=== PATIENT | male | born 1970 | race Caucasian/White ===

== ENCOUNTER 2016-12-20 18:05 | Emergency (ER) | payer MEDICAID, OTHER ==
[~2016-12-20] VITALS: Ht 182.9 cm; Wt 94.8 kg
[2016-12-20 18:19] VITALS: BP 132/74; PULSE 80; RESP 18; TEMP 97.3; O2SAT 97
[2016-12-20] MEDS ORDERED: ROBA500T PO (18:29)
[2016-12-20] MEDS ORDERED: PRIL20CA9 PO (18:29)
[2016-12-20] MEDS ORDERED: NABU1TAB37 PO (18:29)
[2016-12-20] MEDS ORDERED: CLON1 PO (18:29)
[2016-12-20] MEDS ORDERED: SODIUM CHLOR 0.9% 1000 ML INJ 1,000 ML IV SCH (18:38)
[2016-12-20] MEDS ORDERED: ONDANSETRON HCL 4 MG/2 ML VIAL IVP ONE (18:45)
[2016-12-20] MEDS ORDERED: DICYCLOMINE HCL 20 MG/2 ML VIAL IM ONE (18:45)
[2016-12-20] MEDS ORDERED: SODIUM CHLORIDE 0.9% FLUSH 5 ML FLUSH IVF PRN (18:45)
--- NOTE | 2016-12-20 18:45 | PD ---
HPI Chief Complaint: Abdominal Pain Time Seen by Provider: 18:24 Travel History International Travel<30 days: No Contact w/Intl Traveler<30days: No Traveled to known affect area: No History of Present Illness HPI Patient is a 46-year-old male presents emergency department for evaluation of right lower quadrant abdominal pain which started approximately 3 days ago. He states that roughly 7 days ago he started having nausea and vomiting nonbilious and nonbloody followed by a blowout bowel movement has been having runny stools since then. Denies any blood in the stool or melanotic stools. Patient denies any fevers. Patient states it feels like when he had appendicitis last time but they have taken out his appendix. Denies fevers. States it's cramping in nature and it feels better when he sits up. No other sick contacts. 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) Neurologic: No Psychiatric: Yes (PTSD) Respiratory: No Immunizations Current: Yes Past Surgical History Appendectomy: Yes Other Surgery: Yes Social History Alcohol Use: No (DENIES AT PRESENT) Tobacco Use: Yes (1PPD) Substance Use: Yes (admits to using ETOH/pot, states nothing recent) Allergies-Medications (Allergen,Severity, Reaction): Coded Allergies: Aleve (Verified Allergy, Severe, 12/20/16) Ampicillin (Verified Allergy, Mild, NAUSEA, 12/20/16) Naproxen (Verified Allergy, Mild, NAUSEA, 12/20/16) Penicillin (Verified Allergy, Mild, 12/20/16) PT DENIES Keflex (Verified Allergy, Unknown, 12/20/16) Reported Meds & Prescriptions Reported Meds & Active Scripts Active Zofran Odt (Ondansetron Odt) 4 Mg Tab 4 Mg SL Q6HR PRN Bentyl (Dicyclomine HCl) 20 Mg Tab 20 Mg PO TID PRN Flagyl (Metronidazole) 500 Mg Tab 500 Mg PO BID 7 Days Ciprofloxacin (Ciprofloxacin HCl) 500 Mg Tab 500 Mg PO BID 7 Days Reported Klonopin (Clonazepam) 1 Mg Tab 1 Mg PO TID Prilosec (Omeprazole) 20 Mg Cap Unknown Dose PO DAILY Robaxin (Methocarbamol) 500 Mg Tab Unknown Dose PO QID Nabumetone 500 Mg Tab Unknown Dose PO DAILY Review of Systems Except as stated in HPI: all other systems reviewed are Neg Physical Exam Narrative GENERAL: Well-developed well-nourished no apparent distress SKIN: Warm and dry. HEAD: Atraumatic. Normocephalic. EYES: Pupils equal and round. No scleral icterus. No injection or drainage. ENT: No nasal bleeding or discharge. Mucous membranes pink and moist. NECK: Trachea midline. No JVD. CARDIOVASCULAR: Regular rate and rhythm. No murmur appreciated. RESPIRATORY: No accessory muscle use. Clear to auscultation. Breath sounds equal bilaterally. GASTROINTESTINAL: Abdomen soft, non-tender, nondistended. Hepatic and splenic margins not palpable. Psoas and obturator signs negative. No rebound no percussive tenderness. Minimal tenderness in the right lower quadrant just lateral to McBurney's point. MUSCULOSKELETAL: No obvious deformities. No clubbing. No cyanosis. No edema. NEUROLOGICAL: Awake and alert. No obvious cranial nerve deficits. Motor grossly within normal limits. Normal speech. PSYCHIATRIC: Appropriate mood and affect; insight and judgment normal. Data Data Last Documented VS Orders Complete Blood Count With Diff (12/20/16 18:38) Comprehensive Metabolic Panel (12/20/16 18:38) Lipase (12/20/16 18:38) Iv Access Insert/Monitor (12/20/16 18:38) Ecg Monitoring (12/20/16 18:38) Oximetry (12/20/16 18:38) Ondansetron Inj (Zofran Inj) (12/20/16 18:45) Sodium Chlor 0.9% 1000 Ml Inj (Ns 1000 M (12/20/16 18:38) Sodium Chloride 0.9% Flush (Ns Flush) (12/20/16 18:45) Dicyclomine Inj (Bentyl Inj) (12/20/16 18:45) Morphine Inj (Morphine Inj) (12/20/16 19:30) Ct Abd/Pel W Iv Contrast(Rout) (12/20/16 ) Iohexol 350 Inj (Omnipaque 350 Inj) (12/20/16 20:26) Dicyclomine (Bentyl) (12/20/16 20:45) Ondansetron Odt (Zofran Odt) (12/20/16 20:45) Labs MDM Medical Decision Making Medical Screen Exam Complete: Yes Emergency Medical Condition: Yes Differential Diagnosis Appendicitis, lecture led him normality, gastritis, gastroenteritis, cholecystitis is less likely. Narrative Course Patient labs do show a minimally elevated white blood cell count with minimal neutrophil predominance, electrolytes AST ALT lipase within normal limits. Last 24 hours Impressions Abdomen/Pelvis CT 12/20/16 0000 Signed Impressions: Service Date/Time: Tuesday, December 20, 2016 20:09 - CONCLUSION: 1. A few mildly dilated loops of small bowel are demonstrated. This is nonspecific but may be seen with an ileus. 2. No definite diverticulitis is demonstrated. Curt Celeste MD Discuss results with the patient he does have bowel sounds and I don't think that ileus is likely in this patient. Also he has been able to tolerate his by mouth medicines in the emergency department so I doubt he is having significant obstruction. Discussed he needs to consider admission to the hospital for observation given the CT findings. He would like to go home. He feels much better and he does seem to be fairly reliable. Discussed with him return to ED criteria follow-up with his primary care physician Diagnosis Primary Impression: Gastroenteritis Med/Other Pt SpecificInfo: Prescription(s) given Scripts Ondansetron Odt (Zofran Odt)4 Mg Tab4 Mg SL Q6HR PRN (Nausea/Vomiting) #30 TAB Ref 0 Prov:Yovany Sprague MD 12/20/16 Dicyclomine (Bentyl)20 Mg Tab20 Mg PO TID PRN (Bowel Management) #20 TAB Ref 0 Prov:Yovany Sprague MD 12/20/16 Metronidazole (Flagyl)500 Mg [id number] Mg PO BID 7 Days Ref 0 Prov:Yovany Sprague MD 12/20/16 Ciprofloxacin 500 Mg [id number] Mg PO BID 7 Days Ref 0 Prov:Yovany Sprague MD 12/20/16 Disposition: 01 DISCHARGE HOME Condition: Stable Yovany Srpague MD Dec 20, 2016 18:45 Differential Comment Sodium Level 143 MEQ/L Potassium Level 4.6 MEQ/L Chloride Level 109 MEQ/L Carbon Dioxide Level 24.5 MEQ/L Anion Gap 10 MEQ/L Blood Urea Nitrogen 16 MG/DL Creatinine 0.95 MG/DL Estimat Glomerular Filtration 85 ML/MIN Rate Random Glucose 102 MG/DL Calcium Level 8.6 MG/DL Total Bilirubin 0.5 MG/DL Aspartate Amino Transf 23 U/L (AST/SGOT) Alanine Aminotransferase 13 U/L (ALT/SGPT) Alkaline Phosphatase 52 U/L Total Protein 6.9 GM/DL Albumin 3.5 GM/DL Lipase 119 U/L MDM Medical Decision Making Medical Screen Exam Complete: Yes Emergency Medical Condition: Yes Diagnosis Primary Impression: Gastroenteritis Med/Other Pt SpecificInfo: Prescription(s) given Scripts Ondansetron Odt (Zofran Odt)4 Mg Tab4 Mg SL Q6HR PRN (Nausea/Vomiting) #30 TAB Ref 0 Prov:Yovany Sprague MD 12/20/16 Dicyclomine (Bentyl)20 Mg Tab20 Mg PO TID PRN (Bowel Management) #20 TAB Ref 0 Prov:Yovany Sprague MD 12/20/16 Metronidazole (Flagyl)500 Mg [id number] Mg PO BID 7 Days Ref 0 Prov:Yovany Sprague MD 12/20/16 Ciprofloxacin 500 Mg [id number] Mg PO BID 7 Days Ref 0 Prov:Yovany Sprague MD 12/20/16 Disposition: 01 DISCHARGE HOME Condition: Stable Yovany Sprague MD Dec 20, 2016 18:45
[2016-12-20 18:49] VITALS: O2SAT 98
[2016-12-20 18:57] LABS: AUTOMATED NEUTROPHIL # 8.9 TH/MM3 (1.8-7.7); BASOPHIL # 0.3 TH/MM3 (0-0.2); BASOPHIL % 2.7 % (0.0-2.0); EOSINOPHIL # 0.2 TH/MM3 (0-0.4); EOSINOPHIL % 1.9 % (0.0-4.0); HEMATOCRIT 45.3 % (39.0-51.0); HEMO FLAGS DIFF FINAL; LYMPH % 19.7 % (9.0-44.0); LYMPHOCYTE # 2.4 TH/MM3 (1.0-4.8); MEAN CELL VOLUME 90.9 FL (80.0-100.0); MONO % 5.1 % (0.0-8.0); NEUT % 70.6 % (16.0-70.0); PLATELET COUNT 227 TH/MM3 (150-450); RED BLOOD COUNT 4.99 MIL/MM3 (4.50-5.90); RED CELL DISTRIBUTION WIDTH 12.4 % (11.6-17.2); WHITE BLOOD COUNT 12.4 TH/MM3 (4.0-11.0)
[2016-12-20 19:15] VITALS: BP 119/74; PULSE 70; RESP 18; TEMP 97.7; O2SAT 99
[2016-12-20 19:17] LABS: CHLORIDE 109 MEQ/L (98-107); POTASSIUM 4.6 MEQ/L (3.5-5.1); SODIUM (NA) 143 MEQ/L (136-145)
[2016-12-20 19:21] LABS: ANION GAP 10 MEQ/L (5-15); BICARBONATE 24.5 MEQ/L (21.0-32.0); BLOOD UREA NITROGEN 16 MG/DL (7-18)
[2016-12-20 19:24] LABS: ALT (GPT) 13 U/L (12-78); AST (GOT) 23 U/L (15-37); GLOMERULAR FILTRATION RATE 85 ML/MIN (>89)
[2016-12-20 19:26] LABS: TOTAL BILIRUBIN ADULT 0.5 MG/DL (0.2-1.0)
[2016-12-20 19:27] LABS: ALKALINE PHOSPHATASE 52 U/L (45-117)
[2016-12-20] MEDS ORDERED: MORPHINE SULFATE 4 MG/ML INJ IV PUSH ONE (19:30)
[2016-12-20 20:25] VITALS: BP 116/63; PULSE 70; RESP 18; O2SAT 99
[2016-12-20] MEDS ORDERED: IOHEXOL 350 MG/ML 10 ML VIAL (for RAD DIAG) IV ONE (20:26)
[2016-12-20] MEDS ORDERED: BENT20TA PO (20:30)
[2016-12-20] MEDS ORDERED: CIPR500T2 PO (20:30)
[2016-12-20] MEDS ORDERED: METR-1 PO (20:30)
[2016-12-20] MEDS ORDERED: ZOFR4TAB3 SL (20:31)
--- NOTE | 2016-12-20 20:34 | RADHPO ---
EXAM DATE/TIME: 12/20/2016 20:09 [facility] COMPARISON: No previous studies available for comparison. INDICATIONS : Lower pelvic pain,diverticulitis. IV CONTRAST: 91 cc Omnipaque 350 (iohexol) IV ORAL CONTRAST: No oral contrast ingested. RADIATION DOSE: 12.70 CTDIvol (mGy) MEDICAL HISTORY : None SURGICAL HISTORY : Appendectomy. ENCOUNTER: Initial ACUITY: 1 day PAIN SCALE: 5/10 LOCATION: abdomen TECHNIQUE: Volumetric scanning of the abdomen and pelvis was performed. Using automated exposure control and ad justment of the mA and/or kV according to patient size, radiation dose was kept as low as reasonably achievable to obtain optimal diagnostic quality images. FINDINGS: LOWER LUNGS: The visualized lower lungs are clear. LIVER: Homogeneous density without lesion. There is no dilation of the biliary tree. No calcified gallston es. SPLEEN: Normal size without lesion. PANCREAS: Within normal limits. KIDNEYS: Normal in size and shape. There is no mass, stone or hydronephrosis. ADRENAL GLANDS: Within normal limits. VASCULAR: There is no aortic aneurysm. BOWEL/MESENTERY: The stomach, small bowel, and colon demonstrate no acute abnormality. There is no free intraperitone al air or fluid. There are few mildly dilated loops of small bowel with some fluid and air. This is n onspecific. No definite inflammatory changes are seen adjacent to the descending or sigmoid colon. ABDOMINAL WALL: Within normal limits. RETROPERITONEUM: There is no lymphadenopathy. BLADDER: No wall thickening or mass. REPRODUCTIVE: Within normal limits. INGUINAL: There is no lymphadenopathy or hernia. MUSCULOSKELETAL: Within normal limits for patient age. CONCLUSION: 1. A few mildly dilated loops of small bowel are demonstrated. This is nonspecific but may be seen wi th an ileus. 2. No definite diverticulitis is demonstrated. Curt Celeste MD on December 20, 2016 at 20:30 Board Certified Radiologist. This report was verified electronically.
[2016-12-20] MEDS ORDERED: DICYCLOMINE HCL 10 MG CAP PO ONE (20:45)
[2016-12-20] MEDS ORDERED: ONDANSETRON ODT 4 MG TAB PO ONE (20:45)
== END 2016-12-20 21:08 | disposition home or self-care (01) ==
LOC: PHED 18:05
DX: K52.9 Noninfective gastroenteritis and colitis, unspecified (principal); F17.210 Nicotine dependence, cigarettes, uncomplicated; F90.9 Attention-deficit hyperactivity disorder, unspecified type; F43.10 Post-traumatic stress disorder, unspecified
CPT/HCPCS: 74177; 80053; 83690; 85025; 96361; 96374; 96375; 99284; J2270; J2405; J7030; Q9967

== ENCOUNTER 2017-01-12 13:37 | Emergency (ER) | payer OTHER ==
[~2017-01-12] VITALS: Ht 182.9 cm; Wt 99.9 kg
[~2017-01-12 13:37] MED LIST: BENT20TA PO; CIPR500T2 PO; CLON1 PO; METR-1 PO; NABU1TAB37 PO; PRIL20CA9 PO; ROBA500T PO; ZOFR4TAB3 SL
[2017-01-12 13:41] VITALS: BP 125/80; PULSE 90; RESP 16; TEMP 97.7; O2SAT 96
--- NOTE | 2017-01-12 13:57 | PD ---
HPI Chief Complaint: Oral / Dental Pain or Problem Time Seen by Provider: 13:56 Travel History International Travel<30 days: No Contact w/Intl Traveler<30days: No Traveled to known affect area: No History of Present Illness HPI 46-year-old male presents to the ED for evaluation of 5 day history of left upper dental pain. Gradual onset. Patient states it is his "wisdom tooth." The pain radiates to the left ear. He denies headaches, dizziness, fever, chills, difficulty swallowing. No treatment attempt at home. He does not have a primary care provider or dentist. 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) Neurologic: No Psychiatric: Yes (PTSD) Respiratory: No Immunizations Current: Yes Tetanus Vaccination: < 5 Years Influenza Vaccination: Yes Past Surgical History Appendectomy: Yes Other Surgery: Yes Social History Alcohol Use: No (denies) Tobacco Use: Yes (5 cigarettes/day) Substance Use: Yes (denies, hx of marijuana & ETOH) Allergies-Medications (Allergen,Severity, Reaction): Coded Allergies: Aleve (Verified Allergy, Severe, 01/12/17) Ampicillin (Verified Allergy, Mild, NAUSEA, 01/12/17) Naproxen (Verified Allergy, Mild, NAUSEA, 01/12/17) Penicillin (Verified Allergy, Mild, 01/12/17) PT DENIES Keflex (Verified Allergy, Unknown, 01/12/17) Reported Meds & Prescriptions Reported Meds & Active Scripts Active Clindamycin (Clindamycin HCl) 150 Mg Cap 450 Mg PO Q8HR 10 Days Magic Mouthwash Adult Liq (Multi-Ingredient Mouthwash/Gargle) 120 Ml Susp 10 Ml SWISH-SWAL ACHS Each 5mL contains: Nystatin 200,000units, Diphenhydramine 4.25mg, Viscous Lidocaine 10mg, Murray syrup 0.8 mL Review of Systems Except as stated in HPI: all other systems reviewed are Neg Physical Exam Narrative GENERAL: Well-nourished, well-developed white male in no acute distress SKIN: Warm and dry. HEAD: Normocephalic. Atraumatic. EYES: No scleral icterus. No injection or drainage. PERRLA. EOMI. ENT: Pearly dupont tympanic membranes bilaterally. Nasal mucosa is moist. Oropharynx without erythema, edema or exudate. DENTAL: The patient is completely edentulous. The dental mucosa in the area of tooth #1 is pale, tender, edematous.. NECK: Supple, trachea midline. No JVD or lymphadenopathy. CARDIOVASCULAR: Regular rate and rhythm without murmurs, gallops, or rubs. 2+ DP and radial pulses bilaterally. RESPIRATORY: Breath sounds clear and equal bilaterally. No accessory muscle use. GASTROINTESTINAL: Abdomen soft, non-tender, nondistended. + Bowel sounds MUSCULOSKELETAL: No cyanosis, or edema. Patient is ambulatory and moves extremities spontaneously. BACK: Nontender without obvious deformity. No CVA tenderness. Data Data Last Documented VS Vital Signs Date Time Temp Pulse Resp B/P Pulse Ox O2 Delivery O2 Flow Rate FiO2 01/12/17 13:41 97.7 90 16 125/80 96 Orders Tramadol (Ultram) (01/12/17 14:15) [facility] Medical Decision Making Medical Screen Exam Complete: Yes Emergency Medical Condition: Yes Differential Diagnosis Gingivitis versus dentalgia versus dental caries versus dental abscess versus other Narrative Course 46-year-old male presents to the ED for evaluation of 5 day history of left upper dental pain. Gradual onset. Patient states it is his "wisdom tooth." The pain radiates to the left ear. He denies headaches, dizziness, fever, chills, difficulty swallowing. Vitals reviewed. Physical exam reveals a white male in no acute. Complete edentulism. The gingiva in the area of tooth #1 is tender, pale and edematous. Patient states that he has been unable to wear his dentures. Exam otherwise unremarkable. Patient endorses several allergies, including NSAIDs ASA and PCN. Administered PO Ultram. Prescribed clindamycin 450 3 times a day 10 days, Magic mouthwash when necessary for dental pain. He is instructed to take all medication as prescribed, follow up with a dentist. He indicated understanding of instructions and is agreeable to care plan. He is stable and discharged home. Diagnosis Primary Impression: Gingivitis Referrals: Dentist Patient Instructions: General Instructions, Gingivitis (ED) Additional Instructions: Rest, hydrate. Take all antibiotics as prescribed, even if symptoms resolve. Tylenol 3 times a day as prescribed for pain and inflammation. Magic mouthwash as needed for pain. Follow-up with a dentist. Return to the ED for any urgent or emergent medical condition. Med/Other Pt SpecificInfo: Prescription(s) given Scripts Clindamycin 150 Mg [id number] Mg PO Q8HR 10 Days Ref 0 Prov:Miguel Kee MD 01/12/17 Ofzftkbm-Nhggelybchtcvty-Wvgiksplb Liq (Magic Mouthwash Adult Liq)120 Ml Susp10 Ml SWISH-SWAL ACHS #120 ML Ref 0 Each 5mL contains: Nystatin 200,000units, Diphenhydramine 4.25mg, Viscous Lidocaine 10mg, Murray syrup 0.8 mL Prov:Miguel Kee MD 01/12/17 Disposition: 01 DISCHARGE HOME Condition: Stable Maggy Lin Jan 12, 2017 13:57
[2017-01-12] MEDS ORDERED: CLIN1CAP5 PO (14:12)
[2017-01-12] MEDS ORDERED: MAGICADU2 SWISH-SWAL (14:12)
[2017-01-12] MEDS ORDERED: traMADol HCL 50 MG TAB PO ONE (14:15)
== END 2017-01-12 14:48 | disposition home or self-care (01) ==
LOC: PHEFT 13:37
DX: K05.10 Chronic gingivitis, plaque induced (principal); F17.210 Nicotine dependence, cigarettes, uncomplicated
CPT/HCPCS: 99282

== ENCOUNTER 2017-02-03 09:22 | Emergency (ER) | payer OTHER ==
[~2017-02-03] VITALS: Ht 182.9 cm; Wt 92.0 kg
[~2017-02-03 09:22] MED LIST changes: -BENT20TA PO; -CIPR500T2 PO; +CLIN1CAP5 PO; -CLON1 PO; +MAGICADU2 SWISH-SWAL; -METR-1 PO; -NABU1TAB37 PO; -PRIL20CA9 PO; -ROBA500T PO; -ZOFR4TAB3 SL
[2017-02-03 09:40] VITALS: BP 139/103; PULSE 105; RESP 18; TEMP 98.3; O2SAT 98
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
== END 2017-02-03 10:08 | disposition left against medical advice (07) ==
LOC: PHED 09:22
DX: F29 Unspecified psychosis not due to a substance or known physiological condition (principal); F22 Delusional disorders
CPT/HCPCS: 99284

== ENCOUNTER 2017-02-04 18:19 | Emergency (ER) | payer OTHER ==
[~2017-02-04] VITALS: Ht 182.9 cm; Wt 100.0 kg
[2017-02-04 18:25] VITALS: BP 145/97; PULSE 137; RESP 18; TEMP 98.4; O2SAT 98
[2017-02-04] MEDS ORDERED: HALOPERIDOL LACTATE 5 MG/ML AMP IM ONE (18:30)
[2017-02-04] MEDS ORDERED: LORazepam 2 MG/ML VIAL IV ONE (18:30)
--- NOTE | 2017-02-04 18:37 | PD ---
HPI Chief Complaint: Psychiatric Symptoms Time Seen by Provider: 18:23 Travel History International Travel<30 days: No Contact w/Intl Traveler<30days: No Traveled to known affect area: No History of Present Illness HPI The patient is a 46-year-old male who presents emergency department via EMS for psychiatric evaluation. The patient has a history of schizoaffective disorder and is having active hallucinations and delusions. The patient believes that there was a [place] enslavement machine developed during the [place] era that has affected him. The patient feels like he has a black hairy tongue or some type of other tong that is sending hairs throughout his body. The patient states he can feel the hairs coming out of his skin. The patient thinks he is dying from whatever weapon the [place] used on him and is requesting help. The patient states she's been noncompliant on his medications. The patient denies any suicidal ideation or homicidal ideation. The patient is experiencing active hallucinations and delusions. He denies any current illicit drug use or alcohol use. 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) Neurologic: No Psychiatric: Yes (PTSD, hallucinations) Respiratory: No Immunizations Current: Yes Past Surgical History Appendectomy: Yes Other Surgery: Yes Social History Alcohol Use: No (denies) Tobacco Use: Yes (1 ppd) Substance Use: No (denies, hx of marijuana & ETOH) Allergies-Medications (Allergen,Severity, Reaction): Coded Allergies: Aleve (Verified Allergy, Severe, 01/12/17) Ampicillin (Verified Allergy, Mild, NAUSEA, 01/12/17) Naproxen (Verified Allergy, Mild, NAUSEA, 01/12/17) Penicillin (Verified Allergy, Mild, 01/12/17) PT DENIES Keflex (Verified Allergy, Unknown, 01/12/17) Reported Meds & Prescriptions Reported Meds & Active Scripts Active No Active Prescriptions or Reported Medications Review of Systems Except as stated in HPI: all other systems reviewed are Neg HENT: No: Lightheadedness Cardiovascular: No: Chest Pain or Discomfort Respiratory: No: Shortness of Breath Gastrointestinal: No: Nausea, Vomiting, Abdominal Pain Musculoskeletal: No: Weakness Psychiatric: Positive: Disorder of Thought, Other (as noted in the history of present illness), No: Suicidal Ideations, Homicidal Ideation Physical Exam Narrative GENERAL: Awake, alert, paranoid 46-year-old male who appears his stated age and is in no acute respiratory distress. SKIN: Focused skin assessment warm/dry. HEAD: Atraumatic. Normocephalic. EYES: Pupils equal and round. 3 mm bilateral and reactive. Mild old appearing ecchymosis under the eyes bilaterally. ENT: No nasal bleeding or discharge. Mucous membranes pink and moist. No visible dentition. NECK: Trachea midline. No JVD. CARDIOVASCULAR: Regular, tachycardic with a heart rate of 130. RESPIRATORY: No accessory muscle use. Clear to auscultation. Breath sounds equal bilaterally. GASTROINTESTINAL: Abdomen soft, non-tender, nondistended. No rebound tenderness. MUSCULOSKELETAL: No obvious deformities. No clubbing. No cyanosis. No edema. NEUROLOGICAL: Awake and alert. No obvious cranial nerve deficits. Motor grossly within normal limits. Normal speech. Patient is oriented to person, place, and year. PSYCHIATRIC: Appears delusional and somewhat paranoid. Data Data Last Documented VS Vital Signs Date Time Temp Pulse Resp B/P Pulse Ox O2 Delivery O2 Flow Rate FiO2 02/05/17 10:07 97.8 76 16 120/77 99 02/04/17 20:27 Room Air Orders Complete Blood Count With Diff (02/04/17 18:29) Comprehensive Metabolic Panel (02/04/17 18:29) Thyroid Stimulating Hormone (02/04/17 18:29) Urinalysis - C+S If Indicated (02/04/17 18:29) Electrocardiogram (02/04/17 18:29) Ecg Monitoring (02/04/17 18:29) Psych Screen (02/04/17 18:29) Haloperidol Inj (Haldol Inj) (02/04/17 18:30) Lorazepam Inj (Ativan Inj) (02/04/17 18:30) Drug Screen, Random Urine (02/04/17 18:29) Alcohol (Ethanol) (02/04/17 18:29) Potassium Chloride Eff (K-Lyte Cl Eff) (02/04/17 19:30) Free Thyroxine (T4) (02/04/17 20:24) Total T3 (02/04/17 20:24) Labs Laboratory Tests Test 02/04/17 02/04/1702/05/17 18:30 20:33 06:18 White Blood Count 10.2 TH/MM3 Red Blood Count 4.57 MIL/MM3 Hemoglobin 13.9 GM/DL Hematocrit 41.1 % Mean Corpuscular Volume 89.7 FL Mean Corpuscular Hemoglobin 30.5 PG Mean Corpuscular Hemoglobin 34.0 % Concent Red Cell Distribution Width 13.4 % Platelet Count 230 TH/MM3 Mean Platelet Volume 9.0 FL Neutrophils (%) (Auto) 65.5 % Lymphocytes (%) (Auto) 24.0 % Monocytes (%) (Auto) 9.0 % Eosinophils (%) (Auto) 0.8 % Basophils (%) (Auto) 0.7 % Neutrophils # (Auto) 6.7 TH/MM3 Lymphocytes # (Auto) 2.5 TH/MM3 Monocytes # (Auto) 0.9 TH/MM3 Eosinophils # (Auto) 0.1 TH/MM3 Basophils # (Auto) 0.1 TH/MM3 CBC Comment DIFF FINAL Differential Comment Sodium Level 140 MEQ/L Potassium Level 2.9 MEQ/L Chloride Level 103 MEQ/L Carbon Dioxide Level 27.7 MEQ/L Anion Gap 9 MEQ/L Blood Urea Nitrogen 24 MG/DL Creatinine 1.20 MG/DL Estimat Glomerular Filtration 65 ML/MIN Rate Random Glucose 125 MG/DL Calcium Level 9.3 MG/DL Total Bilirubin 0.8 MG/DL Aspartate Amino Transf 56 U/L (AST/SGOT) Alanine Aminotransferase 25 U/L (ALT/SGPT) Alkaline Phosphatase 60 U/L Total Protein 8.1 GM/DL Albumin 4.6 GM/DL Thyroid Stimulating Hormone 0.327 uIU/ML 3rd Gen Ethyl Alcohol Level LESS THAN 3 MG/DL Free Thyroxine 1.12 NG/DL Total Triiodothyronine 123 NG/DL Urine Color YELLOW Urine Turbidity HAZY Urine pH 5.5 Urine Specific [place] 1.031 Urine Protein 30 mg/dL Urine Glucose (UA) NEG mg/dL Urine Ketones 10 mg/dL Urine Occult Blood NEG Urine Nitrite NEG Urine Bilirubin NEG Urine Urobilinogen LESS THAN 2.0 MG/DL Urine Leukocyte Esterase NEG Urine RBC 1 /hpf Urine WBC 3 /hpf Urine Hyaline Casts 13 /lpf Urine Mucus MOD /lpf Microscopic Urinalysis Comment CULT NOT INDICATED Urine Opiates Screen NEG Urine Barbiturates Screen NEG Urine Amphetamines Screen POS Urine Benzodiazepines Screen POS Urine Cocaine Screen NEG Urine Cannabinoids Screen POS MDM Medical Decision Making Medical Screen Exam Complete: Yes Emergency Medical Condition: Yes Medical Record Reviewed: Yes Interpretation(s) Laboratory Tests Test 02/04/17 02/04/17 02/05/17 18:30 20:33 06:18 White Blood Count 10.2 TH/MM3 Red Blood Count 4.57 MIL/MM3 Hemoglobin 13.9 GM/DL Hematocrit 41.1 % Mean Corpuscular Volume 89.7 FL Mean Corpuscular Hemoglobin 30.5 PG Mean Corpuscular Hemoglobin 34.0 % Concent Red Cell Distribution Width 13.4 % Platelet Count 230 TH/MM3 Mean Platelet Volume 9.0 FL Neutrophils (%) (Auto) 65.5 % Lymphocytes (%) (Auto) 24.0 % Monocytes (%) (Auto) 9.0 % Eosinophils (%) (Auto) 0.8 % Basophils (%) (Auto) 0.7 % Neutrophils # (Auto) 6.7 TH/MM3 Lymphocytes # (Auto) 2.5 TH/MM3 Monocytes # (Auto) 0.9 TH/MM3 Eosinophils # (Auto) 0.1 TH/MM3 Basophils # (Auto) 0.1 TH/MM3 CBC Comment DIFF FINAL Differential Comment Sodium Level 140 MEQ/L Potassium Level 2.9 MEQ/L Chloride Level 103 MEQ/L Carbon Dioxide Level 27.7 MEQ/L Anion Gap 9 MEQ/L Blood Urea Nitrogen 24 MG/DL Creatinine 1.20 MG/DL Estimat Glomerular Filtration 65 ML/MIN Rate Random Glucose 125 MG/DL Calcium Level 9.3 MG/DL Total Bilirubin 0.8 MG/DL Aspartate Amino Transf 56 U/L (AST/SGOT) Alanine Aminotransferase 25 U/L (ALT/SGPT) Alkaline Phosphatase 60 U/L Total Protein 8.1 GM/DL Albumin 4.6 GM/DL Thyroid Stimulating Hormone 0.327 uIU/ML 3rd Gen Ethyl Alcohol Level LESS THAN 3 MG/DL Free Thyroxine 1.12 NG/DL Total Triiodothyronine 123 NG/DL Urine Color YELLOW Urine Turbidity HAZY Urine pH 5.5 Urine Specific [place] 1.031 Urine Protein 30 mg/dL Urine Glucose (UA) NEG mg/dL Urine Ketones 10 mg/dL Urine Occult Blood NEG Urine Nitrite NEG Urine Bilirubin NEG Urine Urobilinogen LESS THAN 2.0 MG/DL Urine Leukocyte Esterase NEG Urine RBC 1 /hpf Urine WBC 3 /hpf Urine Hyaline Casts 13 /lpf Urine Mucus MOD /lpf Microscopic Urinalysis Comment CULT NOT INDICATED Urine Opiates Screen NEG Urine Barbiturates Screen NEG Urine Amphetamines Screen POS Urine Benzodiazepines Screen POS Urine Cocaine Screen NEG Urine Cannabinoids Screen POS Differential Diagnosis Differential diagnosis includes psychosis, schizoaffective disorder, schizophrenia, hypercalcemia, dehydration, substance induced mood disorder. Narrative Course IV was established, labs were drawn and sent, and the patient was placed on cardiac telemetry monitoring and continuous pulse oximetry monitoring. EKG was ordered and interpreted. The patient received 1 L of IV fluids, Ativan 1 mg intravenously, and Haldol 5 mg IM. Potassium is low, was replaced orally. TSH was low, therefore, free T3 and free T4 were ordered. Free T3 and free T4 are normal. Patient is medically cleared to be evaluated by psychiatry. Disposition is per psych. Diagnosis Primary Impression: Psychosis Qualified Code: F22 - Delusional disorder Scripts No Active Prescriptions or Reported Meds Condition: Stable Miguel Kee MD February 04, 2017 18:36
[2017-02-04 18:43] LABS: AUTOMATED NEUTROPHIL # 6.7 TH/MM3 (1.8-7.7); BASOPHIL # 0.1 TH/MM3 (0-0.2); BASOPHIL % 0.7 % (0.0-2.0); EOSINOPHIL # 0.1 TH/MM3 (0-0.4); EOSINOPHIL % 0.8 % (0.0-4.0); HEMATOCRIT 41.1 % (39.0-51.0); HEMO FLAGS DIFF FINAL; LYMPHOCYTE # 2.5 TH/MM3 (1.0-4.8); MEAN CELL VOLUME 89.7 FL (80.0-100.0); MEAN CORPUSCULAR HEMOGLOBIN 30.5 PG (27.0-34.0); NEUT % 65.5 % (16.0-70.0); PLATELET COUNT 230 TH/MM3 (150-450); RED BLOOD COUNT 4.57 MIL/MM3 (4.50-5.90); RED CELL DISTRIBUTION WIDTH 13.4 % (11.6-17.2); WHITE BLOOD COUNT 10.2 TH/MM3 (4.0-11.0)
[2017-02-04 19:17] LABS: ALT (GPT) 25 U/L (12-78); ANION GAP 9 MEQ/L (5-15); AST (GOT) 56 U/L (15-37); BICARBONATE 27.7 MEQ/L (21.0-32.0); BLOOD UREA NITROGEN 24 MG/DL (7-18); CHLORIDE 103 MEQ/L (98-107); GLOMERULAR FILTRATION RATE 65 ML/MIN (>89); SODIUM (NA) 140 MEQ/L (136-145)
[2017-02-04 19:26] LABS: POTASSIUM 2.9 MEQ/L (3.5-5.1)
[2017-02-04] MEDS ORDERED: POTASSIUM CHLORIDE 25 MEQ EFFERVESCENT TAB PO ONE (19:30)
[2017-02-04 19:34] LABS: ALKALINE PHOSPHATASE 60 U/L (45-117); TOTAL BILIRUBIN ADULT 0.8 MG/DL (0.2-1.0)
[2017-02-04 20:27] VITALS: BP 110/59; PULSE 74; RESP 26; O2SAT 95
[2017-02-05 06:44] LABS: BLOOD, URINE NEG (NEG); COMMENT (UR) CULT NOT INDICATED; CULTURE IF INDICATED CULT NOT INDICATED; GLUCOSE,URINE NEG (NEG); HYALINE CAST, URINE 13 /lpf (RARE); KETONE, URINE 10 mg/dL (NEG); MUCUS URINE MOD /lpf (OCC); NITRITE,URINE NEG (NEG); PH, URINE 5.5 (5.0-8.5); URINE COLOR YELLOW (YELLW/STRAW)
[2017-02-05 06:48] LABS: AMPHETAMINE, URINE POS (NEG); BARBITURATES, URINE NEG (NEG); COCAINE, URINE NEG (NEG)
--- NOTE | 2017-02-05 10:06 | EKG ---
Date Performed: 02/04/2017 Time Performed: 19:36:33 PTAGE: 46 years EKG: Sinus rhythm POSSIBLE RIGHT VENTRICULAR CONDUCTION DELAY MINIMAL VOLTAGE CRITERIA FOR LVH, CONSIDER NORMAL VARIAN T BORDERLINE ECG PREVIOUS TRACING : 07/29/2016 20.53 DOCTOR: Osmar Edouard Interpretating Date/Time 02/05/2017 10:04:57
[2017-02-05 10:07] VITALS: BP 120/77; TEMP 97.8
--- NOTE | 2017-02-05 12:45 | MB ---
cc: SIMONE NOGUEIRA MD DATE OF CONSULTATION: 02/05/2017 PHYSICIAN REQUESTING CONSULTATION: Emergency department. REASON FOR CONSULTATION: Voluntary psychiatric evaluation. HISTORY OF PRESENT ILLNESS: Mr. Salazar is a 46 year-old male with a chart history of polysubstance use issues, drug induced psychotic disorder and antisocial personality disorder who presented voluntarily to the emergency department for psychiatric evaluation. He verbalized some delusional material to the emergency department provider. Urine toxicity was positive for multiple substances as detailed below. Reviewing the electronic medical record, I see the patient was admitted most recently under Dr. Esposito in 2007 with a discharge diagnosis of polysubstance abuse. Substance abuse, psychotic disorder and antisocial personality. The patient was also admitted under Dr. Harrison with similar diagnosis. The patient was seen and examined, chart was reviewed. The case was discussed with the nurse in the echocardiogram pod. On my examination this morning, the patient is clinically sober. He tells me that his reason for coming into the hospital was "I could really use a Xanax". He is somewhat oppositional in the interview, I could believe that he has antisocial personality traits. However, he denies any suicidal or homicidal ideation, intent or plan. He denies any audiovisual hallucinations. He does continue to verbalize some delusional material regarding some sort of device that is attached to him but this appears to be softening somewhat. No mood symptoms. The remainder of the psychiatric review of systems is negative. The patient is requesting discharge from the emergency room this morning. PAST PSYCHIATRIC HISTORY: The patient reports that he follows with Dr. Wade, he has psychiatric admissions as I said. He denies a history of suicide attempts. FAMILY HISTORY: The patient declines to provide and when I ask if he has a family history he asks me defiantly, "do you?". Chemical dependency history; the patient minimizes his substance use but there is a lengthy chart history of polysubstance use issues. SOCIAL HISTORY: The patient is not terribly forth coming in this regard. He says that he lives alone. He gives his level of education flippantly as "Kindergarten". No reported accidents, guns or firearms. PAST MEDICAL HISTORY: See electronic medical record. REVIEW OF SYSTEMS No reported physical complaints but limited by patients uncooperative. PHYSICAL EXAMINATION: VITAL SIGNS: Temperature 98.4, pulse 74, respirations 26, blood pressure 110/59, pulse oximetry 95% on room air. The physical examination was completed by emergency department provider. On my examination today the patient appears to be well nourished and well developed and in no acute physical distress. Appears to be attending to basic needs. No motor abnormalities noted. No signs of withdraw noted. LABORATORY FINDINGS: Laboratories removed, I do note a critically low potassium at 2.9, urine toxicity is positive for amphetamines, benzodiazepines and cannabinoids. Alcohol level is undetectable. MENTAL STATUS EXAMINATION: The patient is causally dressed, he is fairly well groomed and appears to be attending to basic needs. He is awake, alert and oriented to person and hospital at least. No evidence of delirium, no motor abnormalities noted. Speech is within normal limits, for rate, tone, and volume. Language and fund of knowledge seem average. Mood is somewhat oppositional and affect is blunted. Thought process is linear. No loosening of associations. Possibly some mild paranoid delusions that appear to be softening somewhat. No other delusional material. Denies auditory visual hallucinations. Denies suicidal or homicidal ideation. Insight and judgment are likely poor with respect to the substance use issues. ASSESSMENT: 1. Polysubstance dependency with psychosis, psychosis resolving, F19.250. 2. Some antisocial personality traits. PLAN: This is a 46 year-old male with psychiatric history as detailed above who presents voluntarily for psychiatric evaluation. The patient has a history of substance use issues and related drug induced psychosis and appears to be experiencing resolving episode of the same today. He is declining psychiatric admission or chemical dependency services at this time. He denied suicidal or homicidal ideation. He appeared to be attending to his basic needs. The main issues seems to be substance related which would not fall under the Gillis Act anyway but in any event he does not meet Gillis Act criteria at this time even if it did. I have offered the patient a voluntarily psychiatric evaluation but he has declined this. The patient should pursue chemical dependency evaluation and treatment on an outpatient basis and follow up with his outpatient provider. I have counseled the patient regarding warning signs for need to return to psychiatric evaluation in spite of a general safety plan. The patient is otherwise psychiatrically clear for discharge from the emergency department. Simone Don /8:46 AM /12:21 PM [email or web address]
== END 2017-02-05 10:13 | disposition home or self-care (01) ==
LOC: NEPE 18:19
DX: F19.250 Other psychoactive substance dependence with psychoactive substance-induced psychotic disorder with delusions (principal); F60.2 Antisocial personality disorder; F17.210 Nicotine dependence, cigarettes, uncomplicated
CPT/HCPCS: 80053; 80307; 81001; 84439; 84443; 84480; 85025; 93005; 96372; 96374; 99285; J1630; J2060

== ENCOUNTER 2017-03-01 07:54 | Emergency (ER) | payer OTHER ==
[~2017-03-01] VITALS: Ht 182.9 cm; Wt 92.0 kg
[2017-03-01 08:00] VITALS: BP 144/105; PULSE 120; RESP 18; TEMP 98.4; O2SAT 99
[2017-03-01] MEDS ORDERED: AMPH1TAB40 PO (08:09)
[2017-03-01] MEDS ORDERED: SODIUM CHLOR 0.9% 1000 ML INJ 1,000 ML IV ONE (08:30)
[2017-03-01] MEDS ORDERED: ONDANSETRON HCL 4 MG/2 ML VIAL IV PUSH ONE (08:30)
[2017-03-01 08:37] LABS: BASOPHIL # 0.1 TH/MM3 (0-0.2); BASOPHIL % 0.5 % (0.0-2.0); EOSINOPHIL % 0.4 % (0.0-4.0); HEMO FLAGS DIFF FINAL; LYMPH % 16.4 % (9.0-44.0); LYMPHOCYTE # 1.7 TH/MM3 (1.0-4.8); MEAN CELL VOLUME 90.2 FL (80.0-100.0); MEAN CORPUSCULAR HGB CONC 33.2 % (32.0-36.0); MONO % 7.4 % (0.0-8.0); NEUT % 75.3 % (16.0-70.0); PLATELET COUNT 254 TH/MM3 (150-450); RED BLOOD COUNT 4.88 MIL/MM3 (4.50-5.90); RED CELL DISTRIBUTION WIDTH 12.8 % (11.6-17.2); WHITE BLOOD COUNT 10.6 TH/MM3 (4.0-11.0)
[2017-03-01 08:45] LABS: CHLORIDE 105 MEQ/L (98-107); POTASSIUM 3.7 MEQ/L (3.5-5.1); SODIUM (NA) 139 MEQ/L (136-145)
[2017-03-01 08:49] LABS: ANION GAP 6 MEQ/L (5-15); BICARBONATE 27.6 MEQ/L (21.0-32.0); BLOOD UREA NITROGEN 15 MG/DL (7-18)
[2017-03-01 08:52] LABS: ALT (GPT) 18 U/L (12-78); AST (GOT) 19 U/L (15-37); GLOMERULAR FILTRATION RATE 80 ML/MIN (>89)
[2017-03-01 08:55] LABS: ALKALINE PHOSPHATASE 52 U/L (45-117)
[2017-03-01 09:08] VITALS: BP 160/95; PULSE 100; RESP 18; O2SAT 98
--- NOTE | 2017-03-01 10:41 | PD ---
HPI Chief Complaint: GI Complaint Time Seen by Provider: 08:08 Travel History International Travel<30 days: No Contact w/Intl Traveler<30days: No Traveled to known affect area: No History of Present Illness HPI Patient is a 46-year-old male who has been here several times with hallucinations and delusions. He comes in complaining of a white substance coming from his sinuses. He is unable to fully express what is bothering him today. He says he has to hold his yarsanism to prevent white liquid from coming out of his mouth. He says he came in because he was very sweaty this morning. He says he was seen at [facility] for similar symptom on the right side of his head last week. He showed me paperwork from this visit, where he was diagnosed with tonsillitis. He denies any pains. He is not having any nausea or vomiting. He is not having any chest pain or shortness of breath. He denies any suicidal or homicidal ideation. 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) Neurologic: No Psychiatric: Yes (PTSD, hallucinations) Respiratory: No Immunizations Current: Yes Influenza Vaccination: No ?: Not Past Surgical History Appendectomy: Yes Other Surgery: Yes Social History Alcohol Use: No (denies) Tobacco Use: Yes (1 ppd) Substance Use: No (denies, hx of marijuana & ETOH) Allergies-Medications (Allergen,Severity, Reaction): Coded Allergies: Aleve (Verified Allergy, Severe, 03/01/17) Ampicillin (Verified Allergy, Mild, NAUSEA, 03/01/17) Naproxen (Verified Allergy, Mild, NAUSEA, 03/01/17) Penicillin (Verified Allergy, Mild, 03/01/17) PT DENIES Keflex (Verified Allergy, Unknown, 03/01/17) Reported Meds & Prescriptions Reported Meds & Active Scripts Active Reported Adderall (Amphetamine-Dextroamphetamine) 7.5 Mg Tab 0 PO DAILY Avoid late evening doses. Space doses at least 4 to 6 hours if more than once/day dosing. Review of Systems Except as stated in HPI: all other systems reviewed are Neg General / Constitutional: No: Fever, Chills HENT: No: Headaches, Lightheadedness Cardiovascular: No: Chest Pain or Discomfort Respiratory: No: Shortness of Breath Gastrointestinal: No: Nausea, Vomiting Musculoskeletal: No: Myalgias, Weakness Skin: No Rash, No Change in Pigmentation Neurologic: No: Weakness, Dizziness Physical Exam Narrative GENERAL: Awake and alert, in no acute distress. SKIN: Focused skin assessment warm/dry. HEAD: Atraumatic. Normocephalic. EYES: Pupils equal and round. No scleral icterus. ENT: Mucous membranes pink and moist. No tonsillar swelling or exudates. Abnormalities inside the mouth. NECK: Trachea midline. No JVD. CARDIOVASCULAR: Regular rate and rhythm. No murmur appreciated. RESPIRATORY: No accessory muscle use. Clear to auscultation. Breath sounds equal bilaterally. GASTROINTESTINAL: Abdomen soft, non-tender, nondistended. Hepatic and splenic margins not palpable. MUSCULOSKELETAL: No obvious deformities. No clubbing. No cyanosis. No edema. NEUROLOGICAL: Awake and alert, oriented 4. No obvious cranial nerve deficits. Motor grossly within normal limits. Normal speech. Data Data Last Documented VS Vital Signs Date Time Temp Pulse Resp B/P Pulse Ox O2 Delivery O2 Flow Rate FiO2 03/01/17 09:08 100 18 160/95 98 Room Air 03/01/17 08:00 98.4 Orders Complete Blood Count With Diff (03/01/17 08:22) Comprehensive Metabolic Panel (03/01/17 08:22) Urinalysis - C+S If Indicated (03/01/17 08:22) Drug Screen, Random Urine (03/01/17 08:22) Sodium Chlor 0.9% 1000 Ml Inj (Ns 1000 M (03/01/17 08:30) Ondansetron Inj (Zofran Inj) (03/01/17 08:30) Labs Laboratory Tests Test 03/01/17 08:30 White Blood Count 10.6 TH/MM3 Red Blood Count 4.88 MIL/MM3 Hemoglobin 14.6 GM/DL Hematocrit 44.0 % Mean Corpuscular Volume 90.2 FL Mean Corpuscular Hemoglobin 30.0 PG Mean Corpuscular Hemoglobin 33.2 % Concent Red Cell Distribution Width 12.8 % Platelet Count 254 TH/MM3 Mean Platelet Volume 8.0 FL Neutrophils (%) (Auto) 75.3 % Lymphocytes (%) (Auto) 16.4 % Monocytes (%) (Auto) 7.4 % Eosinophils (%) (Auto) 0.4 % Basophils (%) (Auto) 0.5 % Neutrophils # (Auto) 8.0 TH/MM3 Lymphocytes # (Auto) 1.7 TH/MM3 Monocytes # (Auto) 0.8 TH/MM3 Eosinophils # (Auto) 0.0 TH/MM3 Basophils # (Auto) 0.1 TH/MM3 CBC Comment DIFF FINAL Differential Comment Sodium Level 139 MEQ/L Potassium Level 3.7 MEQ/L Chloride Level 105 MEQ/L Carbon Dioxide Level 27.6 MEQ/L Anion Gap 6 MEQ/L Blood Urea Nitrogen 15 MG/DL Creatinine 1.00 MG/DL Estimat Glomerular Filtration 80 ML/MIN Rate Random Glucose 116 MG/DL Calcium Level 9.9 MG/DL Total Bilirubin 1.0 MG/DL Aspartate Amino Transf 19 U/L (AST/SGOT) Alanine Aminotransferase 18 U/L (ALT/SGPT) Alkaline Phosphatase 52 U/L Total Protein 8.3 GM/DL Albumin 4.6 GM/DL MDM Medical Decision Making Medical Screen Exam Complete: Yes Emergency Medical Condition: Yes Medical Record Reviewed: Yes Differential Diagnosis Pharyngitis versus URI versus psychosis versus drug abuse Narrative Course Patient is a 46-year-old male comes in complaining of a white substance coming out of his mouth. Exam shows no acute abnormalities. Patient is awake, alert, oriented times for. He denies any suicidal or homicidal ideation. I offered him to see a psychiatrist, but he declines at this time. He is not a danger to himself or others. However do believe he is having delusions. Patient advised to avoid drug use. Advised to drink plenty of fluids. Advised follow-up with a psychiatrist. Advised to return to the ED as needed for any worsening symptoms. Diagnosis Primary Impression: URI (upper respiratory infection) Qualified Code: J06.9 - Viral upper respiratory tract infection Patient Instructions: General Instructions, Upper Respiratory Infection (ED) Additional Instructions: Avoid drug use. Drink plenty of fluids. Follow up with a psychiatrist and a primary care doctor. Return to the ED as needed for any worsening symptoms. Disposition: 01 DISCHARGE HOME Condition: Stable Debi Solano MD March 01, 2017 10:41
[2017-03-01 10:50] VITALS: BP 150/88
== END 2017-03-01 10:52 | disposition home or self-care (01) ==
LOC: PHED 07:54
DX: J06.9 Acute upper respiratory infection, unspecified (principal); R44.3 Hallucinations, unspecified; F43.10 Post-traumatic stress disorder, unspecified; F17.200 Nicotine dependence, unspecified, uncomplicated; Z79.899 Other long term (current) drug therapy; Z88.0 Allergy status to penicillin; Z88.6 Allergy status to analgesic agent
CPT/HCPCS: 80053; 85025; 96361; 96374; J2405; J7030

== ENCOUNTER 2017-03-01 13:36 | Inpatient (IN) | payer OTHER ==
[~2017-03-01] VITALS: Ht 182.9 cm; Wt 92.0 kg
[~2017-03-01 13:36] MED LIST changes: +AMPH1TAB40 PO; -CLIN1CAP5 PO; -MAGICADU2 SWISH-SWAL
[2017-03-01 13:43] VITALS: BP 145/84; PULSE 108; RESP 16; TEMP 98.1; O2SAT 99
--- NOTE | 2017-03-01 13:52 | PD ---
Physical Exam Date Seen by Provider: March 01, 2017 Time Seen by Provider: 13:50 Narrative 46 yo male that presents to the ED for evaluation of jaw pain. Ongoing for a few weeks. Has been seen here before for this. He has been having some yellow phlem on his right sinus. No chest pain. No SOB. pain is severe 04/11. Vitals sign stable. Patient awaiting bed placement. Data Data Last Documented VS Vital Signs Date Time Temp Pulse Resp B/P Pulse Ox O2 Delivery O2 Flow Rate FiO2 03/01/17 13:43 98.1 108 16 145/84 99 MDM Medical Record Reviewed: Yes Supervised Visit with LINSEY: No Mason Harris March 01, 2017 13:52
--- NOTE | 2017-03-01 14:52 | PD ---
HPI Chief Complaint: Medical Clearance Time Seen by Provider: 14:40 Travel History International Travel<30 days: No Contact w/Intl Traveler<30days: No Traveled to known affect area: No History of Present Illness HPI This is a 46-year-old male who presents for evaluation. History is limited by patient's psychosis, paranoia. It seems that his primary concern that the [place] implanted something in his face 8 years ago. He reports over the past 8 years he has been unable to see the eye lashes in his right lower eyelid. One month ago he reports that his eyelid "popped out" and since then he has been able to see it. He's been having some sort of discomfort in his face since then. He is requesting a scalpel and some type of surgery. He says that if surgery is not performed on him today than he and a friend will "do some plastic surgery." Per chart review the patient was seen at [facility] today and was diagnosed with upper respiratory infection. He has been seen here twice earlier this month for nonspecific psychosis. [facility] Past Medical History ADHD: Yes Cardiovascular Problems: Yes Diabetes: No Diminished Hearing: No Gastrointestinal Disorders: No Genitourinary: No Musculoskeletal: Yes ( HERNIATED DISKS IN BACK SINCE 1996) Neurologic: No Psychiatric: Yes (PTSD, hallucinations) Respiratory: No Immunizations Current: Yes Past Surgical History Appendectomy: Yes Other Surgery: Yes Social History Alcohol Use: No (denies) Tobacco Use: Yes (1 ppd) Substance Use: No (denies, hx of marijuana & ETOH) Allergies-Medications (Allergen,Severity, Reaction): Coded Allergies: Aleve (Verified Allergy, Severe, 03/01/17) Ampicillin (Verified Allergy, Mild, NAUSEA, 03/01/17) Naproxen (Verified Allergy, Mild, NAUSEA, 03/01/17) Penicillin (Verified Allergy, Mild, 03/01/17) PT DENIES Keflex (Verified Allergy, Unknown, 03/01/17) Reported Meds & Prescriptions Reported Meds & Active Scripts Active Active Prescriptions or Reported Medications Unobtainable Review of Systems ROS Limitations: Altered Mental Status, Psychotic Except as stated in HPI: all other systems reviewed are Neg Physical Exam Exam Limitations: Altered Mental Status, Psychotic Narrative GENERAL: This is well-developed well-nourished male in no acute distress SKIN: Warm and dry. HEAD: Atraumatic. Normocephalic. EYES: Pupils equal and round. No scleral icterus. No injection or drainage. ENT: No nasal bleeding or discharge. Mucous membranes pink and moist. NECK: Trachea midline. No JVD. CARDIOVASCULAR: Regular rate and rhythm. No murmur appreciated. RESPIRATORY: No accessory muscle use. Clear to auscultation. Breath sounds equal bilaterally. GASTROINTESTINAL: Abdomen soft, non-tender, nondistended. MUSCULOSKELETAL: No obvious deformities. No clubbing. No cyanosis. No edema. NEUROLOGICAL: Awake and alert. No obvious cranial nerve deficits. Motor grossly within normal limits. Normal speech. PSYCHIATRIC: Slight of ideas, elevated mood, insight and judgment are limited. Data Data Last Documented VS Vital Signs Date Time Temp Pulse Resp B/P Pulse Ox O2 Delivery O2 Flow Rate FiO2 03/01/17 13:43 98.1 108 16 145/84 99 Orders Drug Screen, Random Urine (03/01/17 14:47) Alcohol (Ethanol) (03/01/17 14:47) Psych Screen (03/01/17 14:47) ^ Sitter (03/01/17 14:54) Lorazepam Inj (Ativan Inj) (03/01/17 15:00) Diet Regular Basic (03/01/17 Dinner) Labs Laboratory Tests Test 03/01/17 15:06 Ethyl Alcohol Level LESS THAN 3 MG/DL MDM Medical Decision Making Medical Screen Exam Complete: Yes Emergency Medical Condition: Yes Medical Record Reviewed: Yes Differential Diagnosis Schizoaffective disorder, schizophrenia, bipolar disorder, substance induced mood disorder, acute psychosis, encephalitis Narrative Course 46-year-old male here with various paranoid ideas about having something implanted in his face several years ago by the [employer]. Seems quite delusional on initial examination. He did say that if surgery was not performed on him today then he and a friend essentially cut into his face in order to remove whatever object was placed by the [employer]. For this reason, the patient will be placed under Gillis act. Reviewed lab work from visit to [place] today, CBC and CMP was essentially unremarkable. Drug screen alcohol level added. Mental health screening discussed with the patient. Psychiatric screen ordered. Diagnosis Primary Impression: Psychosis Qualified Code: F29 - Psychosis, unspecified psychosis type Scripts Unable to Obtain Active Prescriptions or Reported Meds Farzad Morocho March 01, 2017 14:52
[2017-03-01] MEDS ORDERED: LORazepam 2 MG/ML VIAL IM ONE (15:00)
[2017-03-01 15:50] LABS: AMPHETAMINE, URINE POS (NEG); BARBITURATES, URINE NEG (NEG); COCAINE, URINE NEG (NEG)
[2017-03-01 19:15] VITALS: BP 157/86; PULSE 101; RESP 18
[2017-03-01] MEDS ORDERED: diphenhydrAMINE HCL 50 MG CAP PO PRN (21:00)
[2017-03-01] MEDS ORDERED: BENZTROPINE MESYLATE 2 MG/2 ML VIAL IM PRN (21:00)
[2017-03-01] MEDS ORDERED: ACETAMINOPHEN 325 MG TAB PO PRN (21:00)
[2017-03-01] MEDS ORDERED: ALUMINUM/MAGNESIUM/SIMETH 30 ML CUP PO PRN (21:00)
[2017-03-01] MEDS ORDERED: hydrOXYzine HCL 50 MG TAB PO PRN (21:00)
[2017-03-01] MEDS ORDERED: BENZTROPINE MESYLATE 1 MG TAB PO PRN (21:00)
[2017-03-01] MEDS ORDERED: MAGNESIUM HYDROXIDE SUSP 30 ML CUP PO PRN (21:00)
[2017-03-02 01:38] VITALS: BP 148/102; PULSE 107; RESP 20; TEMP 98.7; O2SAT 96
[2017-03-02 06:05] VITALS: BP 125/60; PULSE 65; RESP 18; TEMP 98.4; O2SAT 98
[2017-03-02] MEDS ORDERED: REMOVE OLD PATCH T-DERMAL SCH (09:00)
[2017-03-02] MEDS ORDERED: NICOTINE 21 MG/24 HR PATCH T-DERMAL SCH (09:00)
[2017-03-02 10:22] LABS: ANION GAP 5 MEQ/L (5-15); BICARBONATE 28.7 MEQ/L (21.0-32.0); BLOOD UREA NITROGEN 13 MG/DL (7-18); CHLORIDE 104 MEQ/L (98-107); POTASSIUM 3.9 MEQ/L (3.5-5.1); SODIUM (NA) 138 MEQ/L (136-145)
[2017-03-02 10:26] LABS: GLOMERULAR FILTRATION RATE 97 ML/MIN (>89)
[2017-03-02 10:34] LABS: HDL CHOLESTEROL 39.6 MG/DL (40.0-60.0); LDL CHOLESTEROL 94 MG/DL (0-99)
--- NOTE | 2017-03-02 11:50 | HHI.HP ---
Provisional Diagnosis Admission Date March 01, 2017 at 20:56 [place] I. 1. Delusional disorder of the somatic type 2. Polysubstance abuse [place] II. Deferred [place] V. GAF is 55 presently Certification of Person's Competence To Provide Express and Informed Consent I have personally examined Cade Salazar , a person being served at [facility] on, March 02, 2017 11:35. Express and informed consent means consent voluntarily given in writing, by a competent person, after sufficient explanation and disclosure of the subject matter involved to enable the person to make a knowing and willful decision without any element of force, fraud, deceit, duress, or other form of constraint or coercion. This person is 18 years of age or older, is not now known to be incompetent to consent to treatment with a guardian advocate, and does not have a health care surrogate or proxy currently making medical treatment decisions. I have found this person to be one of the following: [x] Competent to provide express and informed consent, as defined above, for voluntary admission to this facility and is competent to provide express and informed consent for treatment. He/she has the consistent capacity to make well reasoned, willful, and knowing decisions concerning his or her medical or mental health treatment. The person fully and consistently understands the purpose of the admission for examination/placement and is fully capable of personally exercising all rights assured [place] Incompetent to provide express and informed consent to voluntary admission, and this is incompetent to provide express and informed consent to treatment. The person must be transferred to involuntary status and a petition for a guardian advocate filed with the Circuit Court. [] Refusing to provide express and informed consent to voluntary admission but is competent to provide express and informed consent for treatment. The person must be discharged or transferred to involuntary status. Form shall be completed within 24 hours of a person's arrival at the receiving facility and filed in the clinical record of each person: 1. Admitted on a voluntary basis 2. Permitted to provide express and informed consent to his/her own treatment 3. Allowed to transfer from involuntary to voluntary status 4. Prior to permitting a person to consent to his or her own treatment after having been previously found incompetent to consent to treatment. History of Present Illness Capacity: Has Capacity HPI Mr. Salazar is a 46-year-old male with a history of psychotic illness and antisocial personality as well as substance use issues who presented voluntarily to the emergency department with complaints of facial pain. The patient has a long-standing, persistent delusion that he has a device implanted in his face and apparently asked the ED provider for a scalpel or surgery to remove it. The patient was placed under a Gillis act by the ED provider. Reviewing the electronic medical record, I note that I saw the patient most recently in consultation for this same issue earlier this month. It looks like he hasn't been psychiatrically admitted here since 2007. Patient seen and examined with counselor and nurse. Chart reviewed. Case discussed with nursing staff who reports that patient has been no behavioral problem on the unit overnight. On my examination today, the patient is requesting discharge from the inpatient unit. He says that he only came into the emergency room because "I was kind of stressed out yesterday. You might want to give me an Ativan." He continues to articulate the same delusional beliefs regarding having a device implanted in his face, but he adamantly denies wanting to cut this device out himself. Rather, he says that he was asking the ED provider for a referral to a surgeon for evaluation. He denies any suicidal or homicidal ideation, intent or plan on direct questioning. He says that he hasn't hallucinated in "over 8 years." No issues with mood, nor can I elicit any depressive or hypomanic/manic symptoms from this patient at this time. I can elicit no other delusional material: No paranoia, no ideas of reference, thought insertion or withdrawal. The remainder of the psychiatric ROS is negative. Past psychiatric history: The patient has a history of psychiatric diagnoses as noted above. He continues to follow with Dr. Wade, whom he has seen within the last month. He reports that he is adherent with his psychotropic medications. He denies any recent psychiatric admissions or suicide attempts. Review of Systems Except as stated in HPI: all other systems reviewed are Neg Past Psych History Psychological trauma history Patient denies a history of trauma Violence risk - others (6 mos) Lower imminent risk. Patient denies homicidal ideation. No known history of violence. Denies any history of legal problems. Patient's loculated delusion that he has a device implanted in his cheek seems to confirm low propensity for violence. Violence risk - self (6 mos) Lower imminent risk. Patient denies suicidal ideation. He is future oriented. He denies a history of suicide attempts or a family history of suicide attempts. Once again, patient's isolated somatic delusion seems to be less likely to confer risk for suicide. Substance Abuse History Drugs/Alcohol past 12 months Patient denies any abuse of drugs or alcohol, but I do note that his urine toxicology is positive for cannabis and amphetamines. Past Family Social History Coded Allergies: Aleve (Verified Allergy, Severe, 03/01/17) Ampicillin (Verified Allergy, Mild, NAUSEA, 03/01/17) Naproxen (Verified Allergy, Mild, NAUSEA, 03/01/17) Penicillin (Verified Allergy, Mild, 03/01/17) PT DENIES Keflex (Verified Allergy, Unknown, 03/01/17) Past Medical History See electronic medical record. Discontinued Reported Medications Amphetamine-Dextroamphetamine (Adderall)7.5 Mg Tab PO DAILY #30 TAB Ref 0 Avoid late evening doses. Space doses at least 4 to 6 hours if more than once/day dosing. 03/01/17 Current Medications Medications (Trade) Dose Ordered Sig/Sara Route Start Time Stop Time Status Last Admin (Benadryl) 50 mg HS PRN PO 03/01/17 21:00 (Tylenol) 650 mg Q4H PRN PO 03/01/17 21:00 (Milk Of Magnesia Liq) 30 ml DAILY PRN PO 03/01/17 21:00 (Mag-Al Plus Susp Liq) 30 ml Q6H PRN PO 03/01/17 21:00 (Habitrol 21 Mg Patch.24 Hr) 1 patch DAILY T-DERMAL 03/02/17 09:00 03/02/17 08:50 (Atarax) 50 mg Q6H PRN PO 03/01/17 21:00 03/02/17 02:06 (Cogentin) 1 mg Q12H PRN PO 03/01/17 21:00 (Cogentin Inj) 1 mg Q12H PRN IM 03/01/17 21:00 Miscellaneous Information 1 DAILY T-DERMAL 03/02/17 09:00 03/02/17 09:00 Family History Patient denies any family history of mental illness. Social History Patient reports that he lives alone. He is high school educated. 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 He is single. He has a son with whom he has no contact. He denies any or legal history. He denies any access to guns or firearms. He is a [employer]. Patient's Strengths (min. 2) Attending to basic needs. Verbally fluent. Physical Exam Physical examination completed by ED provider. On my examination today, the patient appears to be in no acute physical distress. No evidence of any abnormality in his face. The patient does have some paraspinal muscle tenderness on the right with radiation down his right leg, but no reported incontinence. No abnormal motor movements noted. Labs and vital signs reviewed : Vital Signs Vital Signs Date Time Temp Pulse Resp B/P Pulse Ox O2 Delivery O2 Flow Rate FiO2 03/02/17 06:05 98.4 65 18 125/60 98 03/01/17 19:15 Room Air Lab Results Item Value Date Time Sodium Level 138 MEQ/L 03/02/17 0715 Potassium Level 3.9 MEQ/L 03/02/17 0715 Chloride Level 104 MEQ/L 03/02/17 0715 Carbon Dioxide Level 28.7 MEQ/L 03/02/17 0715 Blood Urea Nitrogen 13 MG/DL 03/02/17 0715 Creatinine 0.85 MG/DL 03/02/17 0715 Random Glucose 102 MG/DL 03/02/17 0715 Urine Amphetamines Screen POS H 03/01/17 1530 Urine Cannabinoids Screen POS H 03/01/17 1530 Ethyl Alcohol Level LESS THAN 3 MG/DL 03/01/17 1506 Mental Status Examination Patient is in hospital gown. He is well groomed and certainly maintaining basic hygiene. He is awake and alert and oriented 3. No evidence of delirium. No abnormal motor movements noted. Speech is within normal limits for rate, tone and volume. Language and fund of knowledge seemed average. Mood is fair and affect is full and reactive. Thought process linear. No loosening of associations. No evident delusions. Denies audiovisual hallucinations. Denies suicidal or homicidal ideation, intent or plan. Insight and judgment are fair at best, likely patient's chronic condition. Assessment & Plan Problem List: (1) Psychosis ICD Code: F29 (2) Polysubstance abuse ICD Code: F19.10 Assessment & Plan This is a 46-year-old male with psychiatric history as detailed above who is presently admitted under a Gillis act. On my evaluation today, the patient describes his chronic, loculated delusion that he has a device implanted in his face. This delusion does not seem to be impinging on other areas of his life, and I suspect that he is suffering from a delusional disorder of the somatic type. There is no evidence of any other delusional material that I can discern, nor is there any evidence of unstable mood or anxiety disorder in this patient at this time. He is denying suicidal or homicidal ideation. He appears to be attending to his basic needs. Synthesizing the above information and weighing the acute, chronic, and protective factors and based on the available evidence, I operations advisor to a reasonable degree of medical certainty that the patient is at low imminent risk of harm to self or others from a mental illness as defined under the Gillis act and his level of function is adequate for outpatient care. Consequently, the patient does not meet Gillis act criteria. Patient is requesting discharge from the inpatient psychiatric unit today. I will arrange for the patient's discharge home today in stable condition with psychiatric follow-up as arranged by counselor. I have also instructed the patient to follow-up with primary care as he does not wish to wait for hospitalist to evaluate his back pain and this does not seem severe enough to require urgent or emergent evaluation at this time. I have counseled the patient regarding warning signs for need to return to the psychiatric emergency room as part of the general safety plan. This document serves also has my discharge summary. Discharge Planning Discharged today Request HC Surrog/Guard Advoc?: No Problem Qualifiers (1) Psychosis: Qualified Code: F22 - Delusional disorder Simone Feliz MD March 02, 2017 11:50
[2017-03-02 16:15] LABS: HEMOGLOBIN A1a 1.2 %; HEMOGLOBIN A1b 1.5 %; HEMOGLOBIN Ao 85.9 %; HEMOGLOBIN LA1C 1.9 %; HEMOGLOBIN P3 3.6 %
== END 2017-03-02 12:30 | disposition home or self-care (01) | DRG 885 ==
LOC: NEPD 13:36 → NEDA 20:56 → H270 03-02 01:30
PROVIDERS: ADMIT Psychiatry & Neurology Psychiatry; ATTEND Psychiatry & Neurology Psychiatry
DX: F29 Unspecified psychosis not due to a substance or known physiological condition (principal); F19.10 Other psychoactive substance abuse, uncomplicated; F17.210 Nicotine dependence, cigarettes, uncomplicated
CPT/HCPCS: 80048; 80053; 80061; 80307; 83036; 85025; 96361; 96372; 96374; J2060; J2405; J7030